=== PATIENT | male | born 1970 | race Caucasian/White ===

== ENCOUNTER 2017-02-08 10:58 | Emergency (ER) | payer BC, MEDICAID ==
[2017-02-08] MEDS ORDERED: Ketorolac 60 MG/2 ML SDV IM ONE ×2 (11:17→12:11)
[2017-02-08 11:29] VITALS: BP 134/81
--- NOTE | 2017-02-08 11:36 | EDM.PDOC ---
ED HPI GENERAL MEDICAL PROBLEM - General Chief Complaint: General Stated Complaint: KNEE Time Seen by Provider: 02/08/17 11:25 Source of Information: Reports: Patient History Limitations: Reports: No limitations - History of Present Illness INITIAL COMMENTS - FREE TEXT/NARRATIVE: History of present illness: [46 year male comes in status post trip and fall landing with full weight on the left knee. Patient indicates he was trying to not step on or source his grandson so he lost his balance and went down on his left knee with all of his weight. Patient indicated the knee started hurting after a few hours and now has some level of swelling. He indicates that he can ambulate on it it is very uncomfortable to the point of causing him to limp somewhat.] Review of systems: As per history of present illness and below otherwise all systems reviewed and negative. Past medical history: As per history of present illness and as reviewed below otherwise noncontributory. Surgical history: As per history of present illness and as reviewed below otherwise noncontributory. Social history: No reported history of drug or alcohol abuse. Family history: As per history of present illness and as reviewed below otherwise noncontributory. Physical exam: HEENT: Atraumatic, normocephalic, pupils reactive, negative for conjunctival pallor or scleral icterus, mucous membranes moist, throat clear, neck supple, nontender, trachea midline. Lungs: Clear to auscultation, breath sounds equal bilaterally, chest nontender. Heart: S1S2, regular, negative for clicks, rubs, or JVD. Abdomen: Soft, nondistended, nontender. Negative for masses or hepatosplenomegaly. Negative for costovertebral tenderness. Pelvis: Stable nontender. Genitourinary: Deferred. Rectal: Deferred. Extremities: Atraumatic, negative for cords or calf pain. Neurovascular unremarkable. Neuro: Awake, alert, oriented. Cranial nerves II through XII unremarkable. Cerebellum unremarkable. Motor and sensory unremarkable throughout. Exam nonfocal. Global assessment is benign save some tenderness to palpation and passive range of motion to left knee. Diagnostics: [X-ray with] Therapeutics: [Toradol 60 mg IM] Impression: [Knee Pain] Plan: [Knee support, nontoxic] Definitive disposition and diagnosis as appropriate pending reevaluation and review of above. Treatments SKI GUIDE: Reports: Other medication(s) Other Treatments SKI GUIDE: took one of his mothers Hydrocodone this am Left Knee Pain Score (Numeric/FACES): 10 - Related Data Allergies Allergy/AdvReac Type Severity Reaction Status Date / Time No Known Allergies Allergy Verified 01/15/16 08:23 Home Meds: Home Meds . [No Known Home Meds] 01/15/16 [History] Past Medical History HEENT History: Reports: None Cardiovascular History: Reports: None Respiratory History: Reports: None Gastrointestinal History: Reports: None Genitourinary History: Reports: None Musculoskeletal History: Reports: None Neurological History: Reports: None Psychiatric History: Reports: None Endocrine/Metabolic History: Reports: None Hematologic History: Reports: None Immunologic History: Reports: None Oncologic (Cancer) History: Reports: None Dermatologic History: Reports: None - Infectious Disease History Infectious Disease History: Reports: Chicken pox - Past Surgical History Head Surgeries/Procedures: Reports: None HEENT Surgical History: Reports: None Cardiovascular Surgical History: Reports: None Respiratory Surgical History: Reports: None GI Surgical History: Reports: Appendectomy, Hernia repair/other Other GI Surgeries/Procedures: hernia repairs x2 Endocrine Surgical History: Reports: None Neurological Surgical History: Reports: None Musculoskeletal Surgical History: Reports: Arthroscopic knee Dermatological Surgical History: Reports: None Social & Family History - Family History Cardiac: Reports: Heart failure Endocrine/Metabolic: Reports: Diabetes, type II - Tobacco Use Smoking Status *Q: Never Smoker Years of Tobacco use: 18 Packs/Tins Daily: 0.5 Second Hand Smoke Exposure: No - Recreational Drug Use Recreational Drug Use: No ED ROS GENERAL - Review of Systems Review Of Systems: See Below (History of present illness) ED EXAM, GENERAL - Physical Exam Exam: See Below (See history of present illness) Course - Vital Signs Last Recorded V/S: Last Vital Signs Temp 35.7 C 02/08/17 11:10 Pulse 88 02/08/17 11:10 Resp 18 02/08/17 11:10 BP 134/81 02/08/17 11:10 Pulse Ox 96 02/08/17 11:10 - Orders/Labs/Meds Orders: Active Orders 24 hr Category Date Time Status Knee 3V Lt [CR] Stat Exams 02/08/17 11:16 Ordered Meds: Medications Discontinued Medications Generic Name Dose Route Start Last Admin Trade Name Freq PRN Reason Stop Dose Admin Ketorolac Tromethamine 60 mg 02/08/17 11:17 02/08/17 11:26 Toradol IM 02/08/17 11:18 60 mg ONETIME ONE Administration Ketorolac Tromethamine 60 mg 02/08/17 12:11 02/08/17 12:18 Toradol IM 02/08/17 12:12 60 mg ONETIME ONE Administration Departure - Departure Time of Disposition: 12:31 Disposition: Home, Self-Care 01 Condition: good Clinical Impression: Contusion of knee Instructions: Knee Immobilizer, [id number] Additional Instructions: The following information is given to patients seen in the emergency department who are being discharged to home. This information is to outline your options for follow-up care. We provide all patients seen in our emergency department with a follow-up referral. The need for follow-up, as well as the timing and circumstances, are variable depending upon the specifics of your emergency department visit. If you don't have a primary care physician on staff, we will provide you with a referral. We always advise you to contact your personal physician following an emergency department visit to inform them of the circumstance of the visit and for follow-up with them and/or the need for any referrals to a consulting specialist. The emergency department will also refer you to a specialist when appropriate. This referral assures that you have the opportunity for follow-up care with a specialist. All of these measure are taken in an effort to provide you with optimal care, which includes your follow-up. Under all circumstances we always encourage you to contact your private physician who remains a resource for coordinating your care. When calling for follow-up care, please make the office aware that this follow-up is from your recent emergency room visit. If for any reason you are refused follow-up, please contact the [facility] Emergency Department at and asked to speak to the emergency department charge nurse. Take medication as directed Followup with PCP 1-2 days Return to ED as needed as discussed - My Orders Last 24 Hours: My Active Orders 02/08/17 11:16 Knee 3V Lt [CR] Stat - Assessment/Plan Last 24 Hours: My Active Orders 02/08/17 11:16 Knee 3V Lt [CR] Stat
--- NOTE | 2017-02-08 13:52 | CR ---
EXAM DATE: 02/08/17 PATIENT'S AGE: 46 Patient: SINGH FARRELL Facility: [place], [place] Site . Site : 1970 Study: XRay Knee Left [id number]/24/2017 12:11:39 PM Ordering Physician: Doctor Barakat Final Report: INDICATION: Constant and Sharp Knee Pain Post Fall FINDINGS: Three views of the left knee show no evidence of acute fracture or dislocation. No other bony or soft tissue abnormalities identified. Dictated by Celso Blake MD @ 02/08/2017 12:22:11 PM Dictated by: Celso Blake MD @ 02/08/2017 12:22:22 (Electronic Signature) Report Signed by Proxy and Original Signed Document filed in the Medical Record. [email or web address]
== END 2017-02-08 13:00 | disposition home or self-care (01) ==
LOC: MW.ED 10:58
DX: S80.02XA Contusion of left knee, initial encounter (principal); Z90.49 Acquired absence of other specified parts of digestive tract; W01.0XXA Fall on same level from slipping, tripping and stumbling without subsequent striking against object, initial encounter
CPT/HCPCS: 73562; 96372; 99284; J1885; 99283

== ENCOUNTER 2017-02-13 15:31 | Emergency (ER) | payer MEDICAID ==
--- NOTE | 2017-02-13 15:42 | EDM.PDOC ---
ED HPI Trauma - General Chief Complaint: Lower Extremity Injury/Pain Stated Complaint: LEFT KNEE Time Seen by Provider: 02/13/17 15:40 Source: Reports: Patient History Limitations: Reports: No limitations - History of Present Illness INITIAL COMMENTS - FREE TEXT/NARRATIVE: History of present illness: [46-year-old male presenting with left knee pain. Patient was seen by myself approximately 5 days ago in the ER for knee pain status post trip and fall directly onto the patella. X-rays indicated no acute bony abnormalities at that time. Patient does indicate on this visit, he has a distant history of being positive for gout and being on medication which he no longer takes.] Review of systems: As per history of present illness and below otherwise all systems reviewed and negative. Past medical history: As per history of present illness and as reviewed below otherwise noncontributory. Surgical history: As per history of present illness and as reviewed below otherwise noncontributory. Social history: No reported history of drug or alcohol abuse. Family history: As per history of present illness and as reviewed below otherwise noncontributory. Physical exam: HEENT: Atraumatic, normocephalic, pupils reactive, negative for conjunctival pallor or scleral icterus, mucous membranes moist, throat clear, neck supple, nontender, trachea midline. Lungs: Clear to auscultation, breath sounds equal bilaterally, chest nontender. Heart: S1S2, regular, negative for clicks, rubs, or JVD. Abdomen: Soft, nondistended, nontender. Negative for masses or hepatosplenomegaly. Negative for costovertebral tenderness. Pelvis: Stable nontender. Genitourinary: Deferred. Rectal: Deferred. Extremities: Left knee noted to have erythema and some amount of nonpitting edema, right knee without any significant findings, negative for cords or calf pain. Neurovascular unremarkable. Neuro: Awake, alert, oriented. Cranial nerves II through XII unremarkable. Cerebellum unremarkable. Motor and sensory unremarkable throughout. Exam nonfocal. Diagnostics: [ CBC, CMP, uric acid] Therapeutics: [] Impression: [Gout flare] Plan: [Medication] Definitive disposition and diagnosis as appropriate pending reevaluation and review of above. Allergies/ADRs: Allergies No Known Allergies Allergy (Verified 01/15/16 08:23) Home Medications: Ambulatory Orders Meloxicam 7.5 mg PO BID #30 tablet 02/08/17 [Confirmed 02/13/17] Colchicine 1.2 mg PO BID #40 tablet 02/13/17 Past Medical History HEENT History: Reports: None Cardiovascular History: Reports: None Respiratory History: Reports: None Gastrointestinal History: Reports: None Genitourinary History: Reports: None Musculoskeletal History: Reports: None Neurological History: Reports: None Psychiatric History: Reports: None Endocrine/Metabolic History: Reports: None Hematologic History: Reports: None Immunologic History: Reports: None Oncologic (Cancer) History: Reports: None Dermatologic History: Reports: None - Infectious Disease History Infectious Disease History: Reports: Chicken pox - Past Surgical History Head Surgeries/Procedures: Reports: None HEENT Surgical History: Reports: None Cardiovascular Surgical History: Reports: None Respiratory Surgical History: Reports: None GI Surgical History: Reports: Appendectomy, Hernia repair/other Other GI Surgeries/Procedures: hernia repairs x2 Endocrine Surgical History: Reports: None Neurological Surgical History: Reports: None Musculoskeletal Surgical History: Reports: Arthroscopic knee Dermatological Surgical History: Reports: None Social & Family History - Family History Cardiac: Reports: Heart failure Endocrine/Metabolic: Reports: Diabetes, type II - Tobacco Use Smoking Status *Q: Never Smoker Years of Tobacco use: 18 Packs/Tins Daily: 0.5 Second Hand Smoke Exposure: No - Recreational Drug Use Recreational Drug Use: No Review of Systems - Review of Systems Review Of Systems: See Below (See history of present illness) Trauma Exam - Physical Exam Exam: See Below (The history of present illness) Course - Vital Signs Last Recorded V/S: Last Vital Signs Temp 36.1 C 02/13/17 15:40 Pulse 87 02/13/17 15:40 Resp 18 02/13/17 15:40 BP 132/86 02/13/17 15:40 Pulse Ox 95 02/13/17 15:40 - Orders/Labs/Meds Labs: Laboratory Tests 02/13/17 02/13/17 Range/Units 15:45 15:45 WBC 7.31 (4.0-11.0) K/uL RBC 4.37 L (4.50-5.90) M/uL Hgb 13.2 (13.0-17.0) g/dL Hct 39.5 (38.0-50.0) % MCV 90.4 (80.0-98.0) fL MCH 30.2 (27.0-32.0) pg MCHC 33.4 (31.0-37.0) g/dL RDW Std Deviation 43.8 (28.0-62.0) fl RDW Coeff of Teresa 13 (11.0-15.0) % Plt Count 232 (150-400) K/uL MPV 10.00 (7.40-12.00) fL Neut % (Auto) 53.1 (48.0-80.0) % Lymph % (Auto) 37.1 (16.0-40.0) % [place] % (Auto) 8.1 (0.0-15.0) % Eos % (Auto) 1.6 (0.0-7.0) % Baso % (Auto) 0.1 (0.0-1.5) % Neut # (Auto) 3.9 (1.4-5.7) K/uL Lymph # (Auto) 2.7 H (0.6-2.4) K/uL [place] # (Auto) 0.6 (0.0-0.8) K/uL Eos # (Auto) 0.1 (0.0-0.7) K/uL Baso # (Auto) 0.0 (0.0-0.1) K/uL Nucleated RBC % 0.0 /100WBC Nucleated RBCs # 0 K/uL Sodium 139 (136-146) mmol/L Potassium 4.3 (3.5-5.1) mmol/L Chloride 106 (98-110) mmol/L Carbon Dioxide 24 (21-31) mmol/L BUN 15 (6.0-23.0) mg/dL Creatinine 1.2 (0.6-1.5) mg/dL Est Cr Clr Drug Dosing 82.63 mL/min Estimated GFR (MDRD) > 60.0 ml/min Glucose 122 H (60-110) mg/dL Uric Acid 7.6 H (2.1-7.4) mg/dL Calcium 9.2 (8.8-10.8) mg/dL Total Bilirubin 0.5 (0.1-1.5) mg/dL AST 23 (5-40) IU/L ALT 33 (8-54) IU/L Alkaline Phosphatase 71 (40-150) Total Protein 7.4 (6.0-8.0) g/dL Albumin 4.2 (3.5-5.0) g/dL Globulin 3.2 (2.0-3.5) g/dL Albumin/Globulin Ratio 1.3 (1.3-2.8) Departure - Departure Time of Disposition: 16:29 Disposition: Home, Self-Care 01 Condition: good Clinical Impression: Acute gouty arthritis Prescriptions: Colchicine 1.2 mg PO BID #40 tablet Referrals: PCP,None [Primary Care Provider] - Forms: ED Department Discharge Additional Instructions: The following information is given to patients seen in the emergency department who are being discharged to home. This information is to outline your options for follow-up care. We provide all patients seen in our emergency department with a follow-up referral. The need for follow-up, as well as the timing and circumstances, are variable depending upon the specifics of your emergency department visit. If you don't have a primary care physician on staff, we will provide you with a referral. We always advise you to contact your personal physician following an emergency department visit to inform them of the circumstance of the visit and for follow-up with them and/or the need for any referrals to a consulting specialist. The emergency department will also refer you to a specialist when appropriate. This referral assures that you have the opportunity for follow-up care with a specialist. All of these measure are taken in an effort to provide you with optimal care, which includes your follow-up. Under all circumstances we always encourage you to contact your private physician who remains a resource for coordinating your care. When calling for follow-up care, please make the office aware that this follow-up is from your recent emergency room visit. If for any reason you are refused follow-up, please contact the [facility] Emergency Department at and asked to speak to the emergency department charge nurse. Take medication as directed Followup with PCP 1-2 day Return to ED as needed as discussed
[2017-02-13 16:11] LABS: CHLORIDE,CL 106 mmol/L (98-110); SODIUM,NA 139 mmol/L (136-146)
[2017-02-13 16:57] VITALS: BP 120/70
== END 2017-02-13 16:50 | disposition home or self-care (01) ==
LOC: MW.ED 15:31
DX: M10.9 Gout, unspecified (principal)
CPT/HCPCS: 36415; 80053; 84550; 85025; 99283

== ENCOUNTER 2017-09-06 19:21 | Emergency (ER) | payer MEDICAID, OTHER ==
[2017-09-06] MEDS ORDERED: Lidocaine 1% 20 ML MDV INJECT ONE (19:59)
--- NOTE | 2017-09-06 20:01 | EDM.PDOC ---
ED HPI GENERAL MEDICAL PROBLEM - General Chief Complaint: Skin Complaint Stated Complaint: BOIL LT LEG Time Seen by Provider: 09/06/17 19:59 Source of Information: Reports: Patient - History of Present Illness INITIAL COMMENTS - FREE TEXT/NARRATIVE: HISTORY AND PHYSICAL: History of present illness: [Patient has a boil on his left inner thigh appears as if this developed from an ingrown hair, has a mild surrounding cellulitis approximately 2 inches in diameter, there is some pointing and the lesion is starting to drain a little exudate No fever nausea vomiting chills sweats ] Review of systems: As per history of present illness and below otherwise all systems reviewed and negative. Past medical history: As per history of present illness and as reviewed below otherwise noncontributory. Surgical history: As per history of present illness and as reviewed below otherwise noncontributory. Social history: No reported history of drug or alcohol abuse. Family history: As per history of present illness and as reviewed below otherwise noncontributory. Physical exam: HEENT: Atraumatic, normocephalic, pupils reactive, negative for conjunctival pallor or scleral icterus, mucous membranes moist, throat clear, neck supple, nontender, trachea midline. Lungs: Clear to auscultation, breath sounds equal bilaterally, chest nontender. Heart: S1S2, regular, negative for clicks, rubs, or JVD. Abdomen: Soft, nondistended, nontender. Negative for masses or hepatosplenomegaly. Negative for costovertebral tenderness. Pelvis: Stable nontender. Genitourinary: Deferred. Rectal: Deferred. Extremities: Atraumatic, negative for cords or calf pain. Neurovascular unremarkable. Neuro: Awake, alert, oriented. Cranial nerves II through XII unremarkable. Cerebellum unremarkable. Motor and sensory unremarkable throughout. Exam nonfocal. Diagnostics: []Wound culture Therapeutics: I and D Wound is flushed and packed 1 g Rocephin Bactrim double strength by mouth twice a day #20 no refill Impression: [Abscess with surrounding cellulitis left inner thigh] Definitive disposition and diagnosis as appropriate pending reevaluation and review of above. inner thigh left Pain Score (Numeric/FACES): 7 - Related Data Allergies Allergy/AdvReac Type Severity Reaction Status Date / Time No Known Allergies Allergy Verified 09/06/17 19:43 Home Meds: Home Meds Meloxicam 7.5 mg PO BID #30 tablet 02/08/17 [Rx] Allopurinol [Zyloprim] 300 mg PO DAILY 09/06/17 [History] Past Medical History - Past Health History Medical/Surgical History: Denies Medical/Surgical History HEENT History: Reports: None Cardiovascular History: Reports: None Respiratory History: Reports: None Gastrointestinal History: Reports: None Genitourinary History: Reports: None Musculoskeletal History: Reports: None Neurological History: Reports: None Psychiatric History: Reports: None Endocrine/Metabolic History: Reports: None Hematologic History: Reports: None Immunologic History: Reports: None Oncologic (Cancer) History: Reports: None Dermatologic History: Reports: None - Infectious Disease History Infectious Disease History: Reports: Chicken Pox - Past Surgical History Head Surgeries/Procedures: Reports: None HEENT Surgical History: Reports: None Cardiovascular Surgical History: Reports: None Respiratory Surgical History: Reports: None GI Surgical History: Reports: Appendectomy, Hernia Repair/Other Endocrine Surgical History: Reports: None Neurological Surgical History: Reports: None Musculoskeletal Surgical History: Reports: Arthroscopic Knee Dermatological Surgical History: Reports: None Social & Family History - Family History Family Medical History: Noncontributory Cardiac: Reports: Heart Failure Endocrine/Metabolic: Reports: Diabetes, type II - Tobacco Use Smoking Status *Q: Never Smoker Years of Tobacco use: 18 Packs/Tins Daily: 0.5 Second Hand Smoke Exposure: No - Caffeine Use Caffeine Use: Reports: None - Recreational Drug Use Recreational Drug Use: No ED ROS GENERAL - Review of Systems Review Of Systems: ROS reveals no pertinent complaints other than HPI. ED EXAM, SKIN/RASH Exam: See Below Course - Vital Signs Last Recorded V/S: Last Vital Signs Temp 97.8 F 09/06/17 19:21 Pulse 94 09/06/17 19:21 Resp 18 09/06/17 19:21 BP 118/83 09/06/17 19:21 Pulse Ox 94 L 09/06/17 19:21 - Orders/Labs/Meds Orders: Active Orders 24 hr Category Date Time Status CULTURE URINE [RM] Stat Lab 09/06/17 20:10 Stop Req CULTURE WOUND [RM] Stat Lab 09/06/17 20:38 Uncollected cefTRIAXone [Rocephin] 1,000 mg Med 09/06/17 20:39 Ordered Lidocaine 1% [Xylocaine-MPF 1%] 4 ml IM ONETIME Meds: Medications Discontinued Medications Generic Name Dose Route Start Last Admin Trade Name [place] PRN Reason Stop Dose Admin Ceftriaxone Sodium 1,000 mg/ 4 mls @ 4 mls/sec 09/06/17 20:39 Lidocaine HCl IM 09/06/17 20:40 ONETIME ONE Lidocaine HCl 20 ml 09/06/17 19:59 Xylocaine 1% INJECT 09/06/17 20:00 ONETIME ONE Departure - Departure Time of Disposition: 20:40 Disposition: Home, Self-Care 01 Condition: Good Clinical Impression: Abscess, Encounter for incision and drainage procedure - Discharge Information Referrals: Rod Koenig MD [Primary Care Provider] - Forms: ED Department Discharge Additional Instructions: Medication as prescribed Return if fever nausea vomiting chills sweats redness warmth or worsening of symptoms Follow-up with primary care in 48 hours for repacking and wound check If unable to gain appointment with primary care return to emergency room The following information is given to patients seen in the emergency department who are being discharged to home. This information is to outline your options for follow-up care. We provide all patients seen in our emergency department with a follow-up referral. The need for follow-up, as well as the timing and circumstances, are variable depending upon the specifics of your emergency department visit. If you don't have a primary care physician on staff, we will provide you with a referral. We always advise you to contact your personal physician following an emergency department visit to inform them of the circumstance of the visit and for follow-up with them and/or the need for any referrals to a consulting specialist. The emergency department will also refer you to a specialist when appropriate. This referral assures that you have the opportunity for follow-up care with a specialist. All of these measure are taken in an effort to provide you with optimal care, which includes your follow-up. Under all circumstances we always encourage you to contact your private physician who remains a resource for coordinating your care. When calling for follow-up care, please make the office aware that this follow-up is from your recent emergency room visit. If for any reason you are refused follow-up, please contact the [facility] emergency department at and asked to speak to the emergency department charge nurse. - My Orders Last 24 Hours: My Active Orders 09/06/17 20:10 CULTURE URINE [RM] Stat 09/06/17 20:38 CULTURE WOUND [RM] Stat 09/06/17 20:39 cefTRIAXone [Rocephin] 1,000 mg Lidocaine 1% [Xylocaine-MPF 1%] 4 ml IM ONETIME - Assessment/Plan Last 24 Hours: My Active Orders 09/06/17 20:10 CULTURE URINE [RM] Stat 09/06/17 20:38 CULTURE WOUND [RM] Stat 09/06/17 20:39 cefTRIAXone [Rocephin] 1,000 mg Lidocaine 1% [Xylocaine-MPF 1%] 4 ml IM ONETIME
[2017-09-06] MEDS ORDERED: cefTRIAXone 1,000 MG in Lidocaine 1% 4 ML IM ONE (20:39)
[2017-09-06 21:36] VITALS: BP 126/95
== END 2017-09-06 21:30 | disposition home or self-care (01) ==
LOC: MW.ED 19:21
DX: L02.416 Cutaneous abscess of left lower limb (principal); L03.116 Cellulitis of left lower limb
CPT/HCPCS: 10061; 87070; 99283; J0696; 99282

== ENCOUNTER 2017-11-09 02:23 | Emergency (ER) | payer OTHER ==
[2017-11-09] MEDS ORDERED: Ketorolac 60 MG/2 ML SDV IM ONE (02:42)
--- NOTE | 2017-11-09 03:44 | EDM.PDOC ---
ED HPI GENERAL MEDICAL PROBLEM - General Chief Complaint: Lower Extremity Injury/Pain Stated Complaint: GOUT IN LEFT FOOT Time Seen by Provider: 11/09/17 03:44 - History of Present Illness INITIAL COMMENTS - FREE TEXT/NARRATIVE: HISTORY AND PHYSICAL: History of present illness: Patient's a 47-year-old white male presents with a concern of acute pain swelling to the base of the first digit of his left foot he has a history of gouty arthritis denies fever chills nausea vomiting Review of systems: As per history of present illness and below otherwise all systems reviewed and negative. Past medical history: As per history of present illness and as reviewed below otherwise noncontributory. Surgical history: As per history of present illness and as reviewed below otherwise noncontributory. Social history: No reported history of drug or alcohol abuse. Family history: As per history of present illness and as reviewed below otherwise noncontributory. Physical exam: HEENT: Atraumatic, normocephalic, pupils reactive, negative for conjunctival pallor or scleral icterus, mucous membranes moist, throat clear, neck supple, nontender, trachea midline. Lungs: Clear to auscultation, breath sounds equal bilaterally, chest nontender. Heart: S1S2, regular, negative for clicks, rubs, or JVD. Abdomen: Soft, nondistended, nontender. Negative for masses or hepatosplenomegaly. Negative for costovertebral tenderness. Pelvis: Stable nontender. Genitourinary: Deferred. Rectal: Deferred. Extremities: Patient's pain swelling and erythema in the region of the distal first metatarsal left foot neurovascular exams unremarkable Neuro: Awake, alert, oriented. Cranial nerves II through XII unremarkable. Cerebellum unremarkable. Motor and sensory unremarkable throughout. Exam nonfocal. Diagnostics: X-ray left foot uric acid Therapeutics: Toradol 60 mg IM Impression: #1 acute gouty arthritis Definitive disposition and diagnosis as appropriate pending reevaluation and review of above. Left Feet Pain Score (Numeric/FACES): 10 - Related Data Allergies Allergy/AdvReac Type Severity Reaction Status Date / Time No Known Allergies Allergy Verified 11/09/17 02:32 Home Meds: Home Meds Allopurinol [Zyloprim] 300 mg PO DAILY 09/06/17 [History] Meloxicam 7.5 mg PO DAILY PRN 11/09/17 [History] Past Medical History - Past Health History Medical/Surgical History: Denies Medical/Surgical History HEENT History: Reports: None Cardiovascular History: Reports: None Respiratory History: Reports: None Gastrointestinal History: Reports: None Genitourinary History: Reports: None Musculoskeletal History: Reports: Gout Neurological History: Reports: None Psychiatric History: Reports: None Endocrine/Metabolic History: Reports: None Hematologic History: Reports: None Immunologic History: Reports: None Oncologic (Cancer) History: Reports: None Dermatologic History: Reports: None - Infectious Disease History Infectious Disease History: Reports: Chicken Pox - Past Surgical History Head Surgeries/Procedures: Reports: None HEENT Surgical History: Reports: None Cardiovascular Surgical History: Reports: None Respiratory Surgical History: Reports: None GI Surgical History: Reports: Appendectomy, Hernia Repair/Other Male Surgical History: Reports: None Endocrine Surgical History: Reports: None Neurological Surgical History: Reports: None Musculoskeletal Surgical History: Reports: Arthroscopic Knee Dermatological Surgical History: Reports: None Social & Family History - Family History Family Medical History: Noncontributory Cardiac: Reports: Heart Failure Endocrine/Metabolic: Reports: Diabetes, type II - Tobacco Use Smoking Status *Q: Never Smoker Years of Tobacco use: 18 Packs/Tins Daily: 0.5 Second Hand Smoke Exposure: No - Caffeine Use Caffeine Use: Reports: None - Recreational Drug Use Recreational Drug Use: No Review of Systems - Review of Systems Review Of Systems: ROS reveals no pertinent complaints other than HPI. ED EXAM, GENERAL - Physical Exam Exam: See Below (See dictation) Course - Vital Signs Last Recorded V/S: Last Vital Signs Temp 35.5 C 11/09/17 02:25 Pulse 79 11/09/17 02:25 Resp 17 11/09/17 02:25 BP 135/100 H 11/09/17 02:25 Pulse Ox 99 11/09/17 02:25 - Orders/Labs/Meds Orders: Active Orders 24 hr Category Date Time Status Foot Comp Min 3V Lt [CR] Stat Exams 11/09/17 02:42 Taken Labs: Laboratory Tests 11/09/17 Range/Units 02:48 Uric Acid 6.2 (2.1-7.4) mg/dL Meds: Medications Discontinued Medications Generic Name Dose Route Start Last Admin Trade Name Freq PRN Reason Stop Dose Admin Ketorolac Tromethamine 60 mg 11/09/17 02:42 11/09/17 02:46 Toradol IM 11/09/17 02:43 60 mg ONETIME ONE Administration Departure - Departure Time of Disposition: 03:43 Disposition: Home, Self-Care 01 Condition: Good Clinical Impression: Gout attack - Discharge Information Referrals: Luis A Dimas MD [Primary Care Provider] - Additional Instructions: The following information is given to patients seen in the emergency department who are being discharged to home. This information is to outline your options for follow-up care. We provide all patients seen in our emergency department with a follow-up referral. The need for follow-up, as well as the timing and circumstances, are variable depending upon the specifics of your emergency department visit. If you don't have a primary care physician on staff, we will provide you with a referral. We always advise you to contact your personal physician following an emergency department visit to inform them of the circumstance of the visit and for follow-up with them and/or the need for any referrals to a consulting specialist. The emergency department will also refer you to a specialist when appropriate. This referral assures that you have the opportunity for followup care with a specialist. All of these measure are taken in an effort to provide you with optimal care, which includes your followup. Under all circumstances we always encourage you to contact your private physician who remains a resource for coordinating your care. When calling for followup care, please make the office aware that this follow-up is from your recent emergency room visit. If for any reason you are refused follow-up, please contact the [facility] emergency department at and asked to speak to the emergency department charge nurse. [facility] [address], [address] [place] [address] Indomethacin hydrocodone as prescribed follow-up primary medical doctor as needed as discussed and return as needed as discussed orthopedic clinic for follow-up call to schedule routine appointment - My Orders Last 24 Hours: My Active Orders 11/09/17 02:42 Foot Comp Min 3V Lt [CR] Stat - Assessment/Plan Last 24 Hours: My Active Orders 11/09/17 02:42 Foot Comp Min 3V Lt [CR] Stat
[2017-11-09 05:46] VITALS: BP 127/88
--- NOTE | 2017-11-09 14:51 | CR ---
EXAM DATE: 11/09/17 PATIENT'S AGE: 47 Patient: SINGH FARRELL Facility: [place], [place] Site . Site : 1970 Study: XRay Extremity Left FOOT [id number]/[id number] 3:07:35 AM Ordering Physician: Doctor Barakat Final Report: INDICATION: Foot pain with no known injury. Patient states history of gout TECHNIQUE: Foot radiograph 3 views left COMPARISON: None FINDINGS: Bones: No acute fractures or aggressive bone lesions are identified. Joints: Mild osteoarthritis of the ankle joint is noted. No significant ankle effusion is seen. No radiographic evidence of inflammatory arthritis seen. Soft tissue: Unremarkable. No radiopaque foreign bodies are seen. IMPRESSION: 1. No radiographic evidence of inflammatory arthritis seen. Dictated by Gualberto Waters MD @ 11/09/2017 3:11:54 AM Dictated by: Gualberto Waters MD @ 11/09/2017 03:12:12 (Electronic Signature) Report Signed by Proxy. MICAH
== END 2017-11-09 04:07 | disposition home or self-care (01) ==
LOC: MW.ED 02:23
DX: M10.9 Gout, unspecified (principal); Z79.899 Other long term (current) drug therapy
CPT/HCPCS: 36415; 73630; 84550; 96372; 99283; J1885

== ENCOUNTER 2018-12-08 12:01 | Emergency (ER) | payer BC ==
[2018-12-08 12:13] VITALS: BP 152/86
[2018-12-08] MEDS ORDERED: Ketorolac 60 MG/2 ML SDV IM ONE (12:51)
--- NOTE | 2018-12-08 12:51 | EDM.PDOC ---
ED HPI GENERAL MEDICAL PROBLEM - General Chief Complaint: Lower Extremity Injury/Pain Stated Complaint: pain in knee Time Seen by Provider: 12/08/18 12:51 Source of Information: Reports: Patient History Limitations: Reports: No Limitations - History of Present Illness INITIAL COMMENTS - FREE TEXT/NARRATIVE: HISTORY AND PHYSICAL: History of present illness: Patient is a 48-year-old male here with complaint of left knee pain. He states it started around 1:00am today. He has history of gout in the left toe and left ankle and states he has been out of his allopurinol for a couple of weeks. He has been able to walk on it and denies any fevers or chills. No injury or trauma to the knee. Review of systems: As per history of present illness and below otherwise all systems reviewed and negative. Past medical history: As per history of present illness and as reviewed below otherwise noncontributory. Surgical history: As per history of present illness and as reviewed below otherwise noncontributory. Social history: No reported history of drug or alcohol abuse. Family history: As per history of present illness and as reviewed below otherwise noncontributory. Physical exam: General: Patient sitting comfortably in no acute distress and nontoxic appearing HEENT: Atraumatic, normocephalic, pupils reactive, negative for conjunctival pallor or scleral icterus, mucous membranes moist, throat clear, neck supple, nontender, trachea midline. No meningeal signs. Lungs: Clear to auscultation, breath sounds equal bilaterally, chest nontender. Heart: S1S2, regular, negative for clicks, rubs, or overt murmur. Abdomen: Soft, nondistended, nontender. Negative for masses or hepatosplenomegaly. Negative for costovertebral tenderness. Pelvis: Stable nontender. Genitourinary: Deferred. Rectal: Deferred. Extremities: Right anterior knee is slightly erythematous and warm and tender to palpation. Surrounding skin is intact. No pain with range of motion patient is able to walk on it with minimal discomfort Atraumatic, negative for cords or calf pain. Neurovascular unremarkable. Neuro: Awake, alert, oriented. Cranial nerves II through XII unremarkable. Cerebellum unremarkable. Motor and sensory unremarkable throughout. Exam nonfocal. Notes: Diagnostics: None Therapeutics: Toradol 60mg IM Prescriptions: Medrol dosepak Impression: Acute gout Plan: 1. Take medication as instructed. Please call your primary care provider to get a prescription for allopurinol to start once flare has resolved. 2. Follow up with primary care provider 3. Return to ED as needed as discussed Definitive disposition and diagnosis as appropriate pending reevaluation and review of above. Left Knee Pain Score (Numeric/FACES): 8 - Related Data Allergies Allergy/AdvReac Type Severity Reaction Status Date / Time No Known Allergies Allergy Verified 12/08/18 12:12 Home Meds: Home Meds Allopurinol [Zyloprim] 300 mg PO DAILY 09/06/17 [History] methylPREDNISolone [Medrol] 4 mg PO ASDIRECTED #1 tab.ds.pk 12/08/18 [Rx] Past Medical History - Past Health History Medical/Surgical History: Denies Medical/Surgical History HEENT History: Reports: Other (See Below) Other HEENT History: wears glasses Cardiovascular History: Reports: None Respiratory History: Reports: None Gastrointestinal History: Reports: GERD Genitourinary History: Reports: None Musculoskeletal History: Reports: Gout, Osteoarthritis Neurological History: Reports: None Psychiatric History: Reports: None Endocrine/Metabolic History: Reports: Obesity/BMI 30+ Hematologic History: Reports: None Immunologic History: Reports: None Oncologic (Cancer) History: Reports: None Dermatologic History: Reports: None - Infectious Disease History Infectious Disease History: Reports: Chicken Pox - Past Surgical History Head Surgeries/Procedures: Reports: None HEENT Surgical History: Reports: None Cardiovascular Surgical History: Reports: None Respiratory Surgical History: Reports: None GI Surgical History: Reports: Appendectomy, Hernia Repair/Other Other GI Surgeries/Procedures: hernia repairs x2 Male Surgical History: Reports: None Endocrine Surgical History: Reports: None Neurological Surgical History: Reports: None Musculoskeletal Surgical History: Reports: Arthroscopic Knee, Other (See Below) Other Musculoskeletal Surgeries/Procedures:: knee replacement Dermatological Surgical History: Reports: None Social & Family History - Family History Family Medical History: Noncontributory Cardiac: Reports: Heart Failure Endocrine/Metabolic: Reports: Diabetes, type II - Tobacco Use Smoking Status *Q: Never Smoker - Caffeine Use Caffeine Use: Reports: None - Recreational Drug Use Recreational Drug Use: No Review of Systems - Review of Systems Review Of Systems: ROS reveals no pertinent complaints other than HPI. ED EXAM, GENERAL - Physical Exam Exam: See Below (see dictation) Course - Vital Signs Last Recorded V/S: Last Vital Signs Temp 96.6 F 12/08/18 12:08 Pulse 75 12/08/18 12:08 Resp 18 12/08/18 12:08 BP 152/86 H 12/08/18 12:08 Pulse Ox 97 12/08/18 12:08 - Orders/Labs/Meds Meds: Medications Discontinued Medications Generic Name Dose Route Start Last Admin Trade Name Freq PRN Reason Stop Dose Admin Ketorolac Tromethamine 60 mg 12/08/18 12:51 Toradol IM 12/08/18 12:52 ONETIME ONE Departure - Departure Time of Disposition: 13:09 Disposition: Home, Self-Care 01 Condition: Good Clinical Impression: Acute gout - Discharge Information Prescriptions: methylPREDNISolone [Medrol] 4 mg PO ASDIRECTED #1 tab.ds.pk Referrals: PCP,None [Primary Care Provider] - Forms: ED Department Discharge Additional Instructions: The following information is given to patients seen in the emergency department who are being discharged to home. This information is to outline your options for follow-up care. We provide all patients seen in our emergency department with a follow-up referral. The need for follow-up, as well as the timing and circumstances, are variable depending upon the specifics of your emergency department visit. If you don't have a primary care physician on staff, we will provide you with a referral. We always advise you to contact your personal physician following an emergency department visit to inform them of the circumstance of the visit and for follow-up with them and/or the need for any referrals to a consulting specialist. The emergency department will also refer you to a specialist when appropriate. This referral assures that you have the opportunity for follow-up care with a specialist. All of these measure are taken in an effort to provide you with optimal care, which includes your follow-up. Under all circumstances we always encourage you to contact your private physician who remains a resource for coordinating your care. When calling for follow-up care, please make the office aware that this follow-up is from your recent emergency room visit. If for any reason you are refused follow-up, please contact the [facility] Emergency Department at and asked to speak to the emergency department charge nurse. [facility] [address] [place], [place] [id number] 1. Take medication as instructed. Please call your primary care provider to get a prescription for allopurinol to start once flare has resolved. 2. Follow up with primary care provider 3. Return to ED as needed as discussed
== END 2018-12-08 13:48 | disposition home or self-care (01) ==
LOC: MW.ED 12:01
DX: M10.9 Gout, unspecified (principal); Z79.899 Other long term (current) drug therapy
CPT/HCPCS: 96372; 99283; J1885

== ENCOUNTER 2021-04-16 10:49 | Inpatient (IN) | payer MEDICAID ==
[~2021-04-16 10:49] MED LIST: Albuterol 0.083% 2.5 MG/3 ML Neb Soln NEB PRN; Famotidine 20 MG/2 ML SDV IVPUSH SCH; HYDROmorphone 2 MG/ML Syringe IVPUSH PRN; Lactated Ringers 1,000 ML IV SCH; Metoclopramide 10 MG/2 ML SDV IVPUSH PRN; Morphine 2 MG/ML SYRINGE IVPUSH PRN; Naloxone 0.4 MG/ML Syringe IVPUSH PRN; Ondansetron 4 MG/2 ML SDV IVPUSH PRN; Ropivacaine 49.25 ML, Ketorolac 30 MG, EPINEPHrine 0.5 MG, cloNIDine 80 MCG in Sodium C... INJECT SCH; Scopolamine 1.5 MG Transdermal Patch TRDERM SCH; Tranexamic Acid 1,000 MG in Sodium Chloride 0.9% 100 ML IV ONE; ceFAZolin 1 GM Vial IV ONE; fentaNYL 100 MCG/2 ML SDV IVPUSH PRN
[2021-04-16] MEDS ORDERED: Famotidine 20 MG/2 ML SDV ONE (11:01)
[2021-04-16] MEDS ORDERED: Scopolamine 1.5 MG Transdermal Patch ONE (11:18)
[2021-04-16] MEDS ORDERED: Bupivacaine 0.5% 30 ML SDV ONE (11:25)
[2021-04-16] MEDS ORDERED: fentaNYL 100 MCG/2 ML SDV ONE ×2 (11:46→13:37)
[2021-04-16] MEDS ORDERED: propofoL 100 ML ONE (13:37)
[2021-04-16] MEDS ORDERED: Lidocaine 2% 5 ML SDV ONE ×2 (13:39→14:33)
[2021-04-16] MEDS ORDERED: Metoclopramide 10 MG/2 ML SDV ONE (13:51)
[2021-04-16] MEDS ORDERED: Esmolol 100 MG/10 ML SDV ONE (14:21)
[2021-04-16] MEDS ORDERED: Rocuronium Bromide 50 MG/5 ML Syringe ONE ×2 (14:21)
[2021-04-16] MEDS ORDERED: Sugammadex Sodium 200 MG/2 ML VIAL ONE (14:21)
[2021-04-16] MEDS ORDERED: Metoprolol Tartrate 5 MG/5 ML SDV ONE (14:21)
[2021-04-16] MEDS ORDERED: Ondansetron 4 MG/2 ML SDV ONE ×2 (14:21)
[2021-04-16] MEDS ORDERED: ceFAZolin 1 GM Vial ONE ×3 (14:24)
[2021-04-16] MEDS ORDERED: Lidocaine 2% 100 MG/5 ML Syringe ONE (14:34)
--- NOTE | 2021-04-16 14:37 | PCM.PREANE ---
Preanesthetic Assessment - Anesthesia/Transfusion/Family Hx Anesthesia History: Prior Anesthesia Without Reaction Transfusion History: No Prior Transfusion(s) - Review of Systems General: No Symptoms Pulmonary: No Symptoms Cardiovascular: No Symptoms Gastrointestinal: No Symptoms Neurological: Difficulty Walking (secondary to hip pain) Other: Reports: None - Physical Assessment NPO Status Date: 04/16/21 NPO Status Time: 00:00 Vital Signs: Last Vital Signs Temp 95.5 F L 04/16/21 11:20 Pulse 90 04/16/21 11:20 Resp 16 04/16/21 11:20 BP 136/84 04/16/21 11:20 Pulse Ox 94 L 04/16/21 11:20 Height: 6 ft Weight: 280 lb ASA Class: 3 Mental Status: Alert & Oriented x3 Airway Class: Mallampati = 4 Dentition: Reports: Normal Dentition Thyro-Mental Finger Breadths: 4 Mouth Opening Finger Breadths: 3 ROM/Head Extension: Full Lungs: Clear to Auscultation, Normal Respiratory Effort Cardiovascular: Regular Rate, Regular Rhythm - Lab Values: Laboratory Last Values Blood Type A POSITIVE 04/16/21 11:20 Antibody Screen NEGATIVE 04/16/21 11:20 - Allergies Allergies/Adverse Reactions: Allergies Allergy/AdvReac Type Severity Reaction Status Date / Time No Known Allergies Allergy Verified 04/16/21 11:47 - Blood Blood Available: Yes - Anesthesia Plan Pre-Op Medication Ordered: Anxiolytic - Acknowledgements Anesthesia Type Planned: General Anesthesia Pt an Appropriate Candidate for the Planned Anesthesia: Yes Alternatives and Risks of Anesthesia Discussed w Pt/Guardian: Yes Pt/Guardian Understands and Agrees with Anesthesia Plan: Yes PreAnesthesia Questionnaire - Past Health History Medical/Surgical History: Denies Medical/Surgical History HEENT History: Reports: Other (See Below) Other HEENT History: wears glasses Cardiovascular History: Reports: None Respiratory History: Reports: None Gastrointestinal History: Reports: GERD Other Gastrointestinal History: occasional heartburn- takes Tums Genitourinary History: Reports: None Musculoskeletal History: Reports: Gout, Osteoarthritis Other Musculoskeletal History: hx of degenerative disc disease Neurological History: Reports: None Psychiatric History: Reports: None Endocrine/Metabolic History: Reports: Obesity/BMI 30+ Hematologic History: Reports: None Immunologic History: Reports: None Oncologic (Cancer) History: Reports: None Dermatologic History: Reports: None - Infectious Disease History Infectious Disease History: Reports: Chicken Pox - Past Surgical History Head Surgeries/Procedures: Reports: None HEENT Surgical History: Reports: None Cardiovascular Surgical History: Reports: None Respiratory Surgical History: Reports: None GI Surgical History: Reports: Appendectomy, Hernia Repair/Other Other GI Surgeries/Procedures: hernia repairs x2 Male Surgical History: Reports: None Endocrine Surgical History: Reports: None Neurological Surgical History: Reports: None Musculoskeletal Surgical History: Reports: Arthroscopic Knee, Other (See Below) Other Musculoskeletal Surgeries/Procedures:: knee replacement Oncologic Surgical History: Reports: None Dermatological Surgical History: Reports: None - SUBSTANCE USE Tobacco Use Status *Q: Current Every Day Tobacco User Tobacco Use Within Last Twelve Months: Snuff/Dip Recreational Drug Use History: No - HOME MEDS Home Medications: Home Meds Ibuprofen 800 mg PO ASDIRECTED PRN 04/11/21 [History] Acetaminophen [Tylenol Extra Strength] 1,500 mg PO DAILY PRN 04/16/21 [History] - CURRENT (IN HOUSE) MEDS Current Meds: Current Medications Albuterol (Albuterol 0.083% 2.5 Mg/3 Ml Neb Soln) 2.5 mg NEB ONETIME PRN PRN Reason: Wheezing Droperidol (Droperidol 5 Mg/2 Ml Sdv) 0.625 mg IVPUSH ONETIME PRN PRN Reason: Nausea/Vomiting Famotidine (Famotidine 20 Mg/2 Ml Sdv) 40 mg IVPUSH ONARRIVE [facility] Last Admin: 04/16/21 11:35 Dose: 40 mg Documented by: Fentanyl (Fentanyl 100 Mcg/2 Ml Sdv) 50 mcg IVPUSH Q5M PRN PRN Reason: Pain (mild 1-3) Hydromorphone HCl (Hydromorphone 2 Mg/Ml Syringe) 1 mg IVPUSH Q10M PRN PRN Reason: Pain (moderate 4-6) Ropivacaine 49.25 ml/Ketorolac Tromethamine 30 mg/Epinephrine HCl 0.5 mg/Clonidine HCl 80 mcg/ Sodium Chloride 75 mls @ 50 mls/sec INJECT ASDIRECTED [facility] Lactated Ringer's (Ringers, Lactated) 1,000 mls @ 100 mls/hr IV ASDIRECTED [facility] Last Admin: 04/16/21 11:35 Dose: 100 mls/hr Documented by: Metoclopramide HCl (Metoclopramide 10 Mg/2 Ml Sdv) 10 mg IVPUSH ONETIME PRN PRN Reason: Nausea/Vomiting Morphine Sulfate (Morphine 2 Mg/Ml Syringe) 2 mg IVPUSH Q10M PRN PRN Reason: Pain (severe 7-10) Naloxone HCl (Naloxone 0.4 Mg/Ml Syringe) 0.1 mg IVPUSH ASDIRECTED PRN PRN Reason: Respiratory Depression Ondansetron HCl (Ondansetron 4 Mg/2 Ml Sdv) 4 mg IVPUSH ONETIME PRN PRN Reason: Nausea/Vomiting Scopolamine (Scopolamine 1.5 Mg Transdermal Patch) 1.5 mg TRDER ONARRIVE [facility] Last Admin: 04/16/21 11:44 Dose: 1.5 mg Documented by: Discontinued Medications Bupivacaine HCl (Bupivacaine 0.5% 30 Ml Sdv) Confirm Administered Dose 60 ml .ROUTE .STK-MED ONE Stop: 04/16/21 11:26 Cefazolin Sodium (Cefazolin 1 Gm Vial) 3 gm IV ONCALL ONE Stop: 04/16/21 06:01 Cefazolin Sodium (Cefazolin 1 Gm Vial) Confirm Administered Dose 1 gm .ROUTE .STK-MED ONE Stop: 04/16/21 14:25 Cefazolin Sodium (Cefazolin 1 Gm Vial) Confirm Administered Dose 1 gm .ROUTE .STK-MED ONE Stop: 04/16/21 14:25 Cefazolin Sodium (Cefazolin 1 Gm Vial) Confirm Administered Dose 1 gm .ROUTE .STK-MED ONE Stop: 04/16/21 14:25 Esmolol HCl (Esmolol 100 Mg/10 Ml Sdv) Confirm Administered Dose 100 mg .ROUTE .STK-MED ONE Stop: 04/16/21 14:22 Famotidine (Famotidine 20 Mg/2 Ml Sdv) Confirm Administered Dose 40 mg .ROUTE .STK-MED ONE Stop: 04/16/21 11:02 Fentanyl (Fentanyl 100 Mcg/2 Ml Sdv) Confirm Administered Dose 100 mcg .ROUTE .STK-MED ONE Stop: 04/16/21 11:47 Fentanyl (Fentanyl 100 Mcg/2 Ml Sdv) Confirm Administered Dose 100 mcg .ROUTE .STK-MED ONE Stop: 04/16/21 13:38 Tranexamic Acid 1,000 mg/ (Sodium Chloride) 110 mls @ 600 mls/hr IV ASDIRECTED ONE Stop: 04/16/21 08:10 Propofol (Diprivan 100 Ml) Confirm Administered Dose 100 mls @ as directed .ROUTE .[facility]-MED ONE Stop: 04/16/21 13:38 Lidocaine (Lidocaine 2% 5 Ml Sdv) Confirm Administered Dose 5 ml .ROUTE .[facility]-MED ONE Stop: 04/16/21 13:40 Metoclopramide HCl (Metoclopramide 10 Mg/2 Ml Sdv) Confirm Administered Dose 10 mg .ROUTE .[facility] ONE Stop: 04/16/21 13:52 Metoprolol Tartrate (Metoprolol Tartrate 5 Mg/5 Ml Sdv) Confirm Administered Dose 5 mg .ROUTE .[facility] ONE Stop: 04/16/21 14:22 Ondansetron HCl (Ondansetron 4 Mg/2 Ml Sdv) Confirm Administered Dose 4 mg .ROUTE .[facility] ONE Stop: 04/16/21 14:22 Ondansetron HCl (Ondansetron 4 Mg/2 Ml Sdv) Confirm Administered Dose 4 mg .ROUTE .[facility]-MED ONE Stop: 04/16/21 14:22 Rocuronium [place] (Rocuronium [place] 50 Mg/5 Ml Syringe) Confirm Administered Dose 50 mg .ROUTE .[facility]-MED ONE Stop: 04/16/21 14:22 Rocuronium [place] (Rocuronium [place] 50 Mg/5 Ml Syringe) Confirm Administered Dose 50 mg .ROUTE .ST-MED ONE Stop: 04/16/21 14:22 Scopolamine (Scopolamine 1.5 Mg Transdermal Patch) Confirm Administered [facility].5 [facility] Stop: 04/16/21 11:19 Sugammadex Sodium (Sugammadex Sodium 200 Mg/2 Ml Vial) Confirm Administered Dose 200 mg .ROUTE .ST-MED ONE Stop: 04/16/21 14:22 Tranexamic Acid (Tranexamic Acid 1,000 Mg/10 Ml Amp) Confirm Administered Dose 1,000 mg .ROUTE .ST-MED ONE Stop: 04/16/21 13:49
[2021-04-16] MEDS ORDERED: diphenhydrAMINE 25 MG Cap PO PRN (17:14)
[2021-04-16] MEDS ORDERED: Acetaminophen 325 MG Tab PO PRN (17:14)
[2021-04-16] MEDS ORDERED: Sodium Chloride 0.9% 2.5 ML Syringe FLUSH PRN (17:14)
[2021-04-16] MEDS ORDERED: Ondansetron 4 MG/2 ML SDV IVPUSH PRN (17:14)
[2021-04-16] MEDS ORDERED: Docusate Sodium 100 MG Cap PO PRN (17:14)
[2021-04-16] MEDS ORDERED: oxyCODONE 5 MG Tab PO PRN (17:14)
[2021-04-16] MEDS ORDERED: Bisacodyl 10 MG Supp RECTAL PRN (17:14)
[2021-04-16] MEDS ORDERED: Aluminum Hydroxide/Magnesium Hydroxide/Simethicone Susp 30 ML Cup PO PRN (17:14)
[2021-04-16] MEDS ORDERED: Sodium Chloride 0.9% 10 ML Syringe FLUSH PRN (17:14)
[2021-04-16] MEDS ORDERED: Morphine 2 MG/ML SYRINGE IVPUSH PRN (17:14)
--- NOTE | 2021-04-16 17:24 | PCM.POSTAN ---
POST ANESTHESIA ASSESSMENT - MENTAL STATUS Mental Status: Somnolent - VITAL SIGNS Vital Signs: Last Vital Signs Temp 95.5 F L 04/16/21 11:20 Pulse 90 04/16/21 11:20 Resp 16 04/16/21 11:20 BP 136/84 04/16/21 11:20 Pulse Ox 94 L 04/16/21 11:20 - RESPIRATORY Respiratory Status: Respiratory Rate WNL, Airway Patent, O2 Saturation Stable - CARDIOVASCULAR CV Status: Pulse Rate WNL, Blood Pressure Stable - GASTROINTESTINAL GI Status: No Symptoms - PAIN Pain Score: 1 - POST OP HYDRATION Hydration Status: Adequate & Stable
--- NOTE | 2021-04-16 17:24 | PCM.OPNOTE ---
- General Post-Op/Procedure Note Date of Surgery/Procedure: 04/16/21 Operative Procedure(s): Left total hip arthroplasty using Huynh & Nephew hip system Findings: Left hip severe grade 4 arthritis with full-thickness cartilage loss of both the femoral head and acetabulum, large marginal osteophytes including large anterior osteophyte. Pre Op Diagnosis: Left hip grade 4 osteoarthritis Post-Op Diagnosis: Left hip grade 4 osteoarthritis Anesthesia Technique: General ET Tube, Regional Block Primary Surgeon: Ramy Leger Trimmer And Reinforcer: Romi Diallo Trimmer And Reinforcer Was Necessary: Patient positioning and retraction during surgery. Pathology: Femoral head to pathology EBL in mLs: 300 Complications: None Free Text/Narrative:: Patient is a 50-year-old male with severe left hip arthritis. We discussed the risks and benefits of left total hip replacement. All questions were answered and patient wished to proceed with surgery. Patient consented to surgery. Patient was medically cleared for surgery. Patient was taken to the operating room. After adequate general anesthesia he was placed in a right lateral decubitus position left side up for surgery. Pegboard was used for positioning. The left buttock hip thigh and leg were prep ped and draped in usual sterile manner. Curvilinear incision was made centered over the greater trochanter. Skin was incised with a scalpel. Subcutaneous tissue was incised with electrocautery. The iliotibial band was split between fibers and extended into the gluteus daysi. Retractors were placed. The anterior third of the abductors were taken down as a continuous sleeve in line with the vastus lateralis and retracted anteriorly. AT capsulotomy was performed. It was not possible to dislocate the femoral head so the femoral neck was removed with superior and inferior femoral neck cuts and the neck removed. Then the femoral head was able to be removed with a corkscrew. Retractors were placed around the acetabulum. There were large osteophytes present. Soft tissues were excised as well as the calcified labrum. Sequentially reamed from 54-58 with good bleeding bone. A 3-hole 58 mm acetabular shell was then impacted into place with approximately 45 degrees of abduction and 20 degrees of anteversion. 2 screws were then placed through the cup and then a central hole cover and a third screw hole cover were inserted. Before inserting the liner the large anterior superior anterior and anterior inferior osteophytes were removed with osteotome to prevent dislocation in the future. The liner with cross-linked polyethylene and a 20 degree overhang were then inserted in appropriate position with overhang at approximately 1:00. A Ray-Guero was placed in the liner to protect the liner while the femur was prepared. The femur was prepared starting with a box osteotome. Canal finder and then reamers up to size 15 were sequentially used. Then we broached up to size 14 with good fit and fill. Size 15 was too large. Trial reductions showed that there was good stability and range of motion with a high offset neck and a +8 mm neck length. Femoral trial components were removed. A size 14 high offset ingrowth Synergy femoral stem was inserted to the appropriate depth. A 36 mm diameter +8 mm Oxinium femoral head was applied and seated with an impactor. Reduction was performed and the hip was again noted to be stable with full extension and external rotation to 90 degrees and flexion to 90 degrees. Wounds were irrigated. Capsule was repaired with interrupted #1 Vicryl sutures. The abductors were repaired back to the greater trochanter with #5 Ethibond figu re-of-eight sutures through bone tunnels. The iliotibial band was repaired with interrupted running #1 Vicryl suture. Subcutaneous tissue was approximated with first #1 interrupted Vicryl suture and then subcutaneous 2-0 Vicryl interrupted sutures. Running Monocryl subcuticular suture was used for final skin closure. A sterile dressing was applied and the patient was accompanied the cover room in stable condition. Pain medication Toradol/ibuprofen, acetaminophen, oxycodone Venous thromboembolism prophylaxis: Aspirin enteric-coated 325 mg p.o. daily for 90 days Prophylactic antibiotics: Ancef x2 doses Restrictions: Patient is weightbearing as tolerated on his left lower extremity with anterolateral hip dislocation precautions. He will receive physical therapy in the hospital prior to discharge and outpatient physical therapy will depend on how he does while he is seen here in the hospital.
[2021-04-16] MEDS: Ketorolac 30 MG/ML SDV IVPUSH SCH ×2 (18:46→23:21)
[2021-04-16] MEDS: traMADol 50 MG Tab PO PRN (19:56)
[2021-04-16] MEDS: ceFAZolin 2 GM in Premix Bag 1 BAG IV SCH (23:25)
[2021-04-17] MEDS: ceFAZolin 2 GM in Premix Bag 1 BAG IV SCH (06:44)
[2021-04-17] MEDS: traMADol 50 MG Tab PO PRN (06:46)
--- NOTE | 2021-04-17 08:35 | PCM48HPAN ---
Post Anesthesia Note - EVALUATION WITHIN 48HRS OF ANESTHETIC Vital Signs in Normal Range: Yes Patient Participated in Evaluation: Yes Respiratory Function Stable: Yes Airway Patent: Yes Cardiovascular Function Stable: Yes Hydration Status Stable: Yes Pain Control Satisfactory: Yes Nausea and Vomiting Control Satisfactory: Yes Mental Status Recovered: Yes Vital Signs: Last Vital Signs Temp 96.1 F L 04/17/21 08:00 Pulse 100 04/17/21 08:00 Resp 22 H 04/17/21 08:00 BP 144/101 H 04/17/21 08:00 Pulse Ox 95 04/17/21 08:00
[2021-04-17] MEDS ORDERED: Polyethylene Glycol 3350 Powder 17 GM Packet PO SCH (09:00)
[2021-04-17] MEDS ORDERED: Famotidine 20 MG Tab PO SCH (09:00)
[2021-04-17] MEDS ORDERED: Aspirin 325 MG Tab.EC PO SCH (09:00)
[2021-04-17] MEDS ORDERED: Ibuprofen 800 MG Tab PO SCH (11:00)
[2021-04-17 12:18] VITALS: BP 132/76; PULSE 96
--- NOTE | 2021-04-17 14:17 | PCM.SN.2 ---
- Free Text/Narrative Note: Orthopedic surgery note Postoperative day #1 from left total hip replacement Patient is doing well Pain is well-controlled Patient has been seen by physical therapy and cleared for discharge Plan: Change dressing prior to discharge Outpatient physical therapy as already been ordered and a prescription for a walker has been written Pain management with ibuprofen, Tylenol, and oxycodone Aspirin for venous thromboembolus prophylaxis for 90 days Weightbearing as tolerated on left lower extremity with walker Patient is cleared for discharge to home
--- NOTE | 2021-04-17 15:32 | PCM.DCSUM1 ---
Discharge Summary - Hospital Course Brief History: Patient is a 50-year-old male with severe grade 4 left hip osteoarthritis. He has failed optimal medical management and so we discussed the risks and benefits of left total hip replacement surgery. Patient elected to proceed with surgery and was medically clear for surgery. Diagnosis: Stroke: No - Discharge Data Discharge Date: 04/17/21 Discharge Disposition: Home, Self-Care 01 Condition: Good - Referral to Home Health Primary Care Physician: Rod Koenig MD - Patient Summary/Data Operative Procedure(s) Performed: Left total hip arthroplasty using Huynh & Nephew hip system Complications: None Consults: Consultations 04/16/21 17:15 PT Evaluation and Treatment [CONS] Routine Hospital Course: Patient was admitted to the hospital yesterday and underwent a left total hip replacement. Patient has had an uneventful hospital course. Patient has had good pain management with regional blocks and pain medications. Patient is cleared by physical therapy for discharge to home today. - Patient Instructions Diet: Usual Diet as Tolerated Activity: Apply Ice (use POLARCARE ice pad to your hip to decrease swelling and minimize pain), No Strenuous Activities Activity, Other: weight bearing as tolerates to left leg. Use walker when ambulating Driving, Other: no driving while taking narcotic pain medication Showering/Bathing: May Shower, No Tub Bathing/Swimming (no hot tubs) Other/Special Instructions: Use PolarCare ice pad to left hip often, to minimize swelling which helps to decrease pain. An AquaCell bandage will be applied prior to going home. A second AquaCell bandage will be sent home with you. Please change dressing in 1 week. This second dressing will be removed at your 2 week appointment at the orthopedic clinic. Pain Management : 1) Ibuprofen 800mg three times daily. 2) In addition to Ibuprofen, may take Tylenol for mild-moderate pain and can utilize narcotic medication for severe pain. When walking, use a walker. Take ASPIRIN 325mg daily for 3 months (this is to prevent blood clots). Call orthopedic clinic [phone] with any questions. - Discharge Plan Prescriptions/Med Rec: Aspirin 325 mg PO DAILY #90 tablet Ibuprofen [Motrin] 800 mg PO Q8H #60 tablet Home Medications: Home Meds Acetaminophen [Tylenol] 650 mg PO Q6H PRN tablet 04/16/21 [Rx] Aspirin 325 mg PO DAILY #90 tablet 04/16/21 [Rx] Docusate Sodium [Colace] 100 mg PO Q12HR PRN cap 04/16/21 [Rx] Ibuprofen [Motrin] 800 mg PO Q8H #60 tablet 04/16/21 [Rx] polyethylene glycoL 3350 [MiraLAX] 17 gm PO DAILY packet 04/16/21 [Rx] Patient Handouts: Oxycodone tablets or capsules, Ibuprofen Oral Tablets and Capsules, Aspirin, ASA oral tablets, Total Hip Replacement, Anterior, Care After, [id number] Referrals: Romi Diallo, RN [Registered Nurse] - 05/01/21 2:00 pm - Discharge Summary/Plan Comment DC Time >30 min.: No Discharge Summary/Plan Comment: Weightbearing as tolerated on left lower extremity with walker. Outpatient physical therapy according to the total hip arthroplasty protocol with anterolateral hip dislocation precautions. Pain management with ibuprofen, acetaminophen, and oxycodone. Enteric-coated aspirin for venous thromboembolus prophylaxis for 90 days. - Patient Data Vitals - Most Recent: Last Vital Signs Temp 96.8 F L 04/17/21 12:17 Pulse 96 04/17/21 12:17 Resp 20 04/17/21 12:17 BP 132/76 04/17/21 12:17 Pulse Ox 95 04/17/21 12:17 Weight - Most Recent: 280 lb I&O - Last 24 hours: Intake & Output 04/17/21 04/17/21 04/17/21 06:59 14:59 22:59 Intake Total 700 1850 Output Total 600 400 Balance 100 1450 Lab Results - Last 24 hrs: Laboratory Results - last 24 hr 04/17/21 Range/Units 05:25 Hgb 13.7 (13.0-17.0) g/dL Hct 40.8 (38.0-50.0) % Med Orders - Current: Current Medications Discontinued Medications Acetaminophen (Acetaminophen 325 Mg Tab) 650 mg PO Q6H PRN PRN Reason: Pain Al Hydroxide/Mg Hydroxide (Aluminum Hydroxide/Magnesium Hydroxide/Simethicone Susp 30 Ml Cup) 30 ml PO Q4H PRN PRN Reason: Indigestion Albuterol (Albuterol 0.083% 2.5 Mg/3 Ml Neb Soln) 2.5 mg NEB ONETIME PRN PRN Reason: Wheezing Aspirin (Aspirin 325 Mg Tab.Ec) 325 mg PO DAILY [facility] Last Admin: 04/17/21 09:33 Dose: 325 mg Documented by: Bisacodyl (Bisacodyl 10 Mg Supp) 10 mg RECTAL DAILY PRN PRN Reason: Constipation Bupivacaine HCl (Bupivacaine 0.5% 30 Ml Sdv) Confirm Administered Dose 60 ml .ROUTE .STK-MED ONE Stop: 04/16/21 11:26 Cefazolin Sodium (Cefazolin 1 Gm Vial) 3 gm IV ONCALL ONE Stop: 04/16/21 06:01 Last Admin: 04/16/21 18:45 Dose: Not Given Documented by: Cefazolin Sodium (Cefazolin 1 Gm Vial) Confirm Administered Dose 1 gm .ROUTE .STK-MED ONE Stop: 04/16/21 14:25 Cefazolin Sodium (Cefazolin 1 Gm Vial) Confirm Administered Dose 1 gm .ROUTE .STK-MED ONE Stop: 04/16/21 14:25 Cefazolin Sodium (Cefazolin 1 Gm Vial) Confirm Administered Dose 1 gm .ROUTE .STK-MED ONE Stop: 04/16/21 14:25 Diphenhydramine HCl (Diphenhydramine 25 Mg Cap) 25 - 50 mg PO Q6H PRN PRN Reason: Itching Docusate Sodium (Docusate Sodium 100 Mg Cap) 100 mg PO Q12HR PRN PRN Reason: Constipation Droperidol (Droperidol 5 Mg/2 Ml Sdv) 0.625 mg IVPUSH ONETIME PRN PRN Reason: Nausea/Vomiting Esmolol HCl (Esmolol 100 Mg/10 Ml Sdv) Confirm Administered Dose 100 mg .ROUTE .STK-MED ONE Stop: 04/16/21 14:22 Famotidine (Famotidine 20 Mg/2 Ml Sdv) 40 mg IVPUSH ONARRIVE [facility] Last Admin: 04/16/21 11:35 Dose: 40 mg Documented by: Famotidine (Famotidine 20 Mg/2 Ml Sdv) Confirm Administered Dose 40 mg .ROUTE .STK-MED ONE Stop: 04/16/21 11:02 Famotidine (Famotidine 20 Mg Tab) 40 mg PO DAILY [facility] Last Admin: 04/17/21 09:33 Dose: 40 mg Documented by: Fentanyl (Fentanyl 100 Mcg/2 Ml Sdv) 50 mcg IVPUSH Q5M PRN PRN Reason: Pain (mild 1-3) Fentanyl (Fentanyl 100 Mcg/2 Ml Sdv) Confirm Administered Dose 100 mcg .ROUTE .[facility]-MED ONE Stop: 04/16/21 11:47 Fentanyl (Fentanyl 100 Mcg/2 Ml Sdv) Confirm Administered Dose 100 mcg .ROUTE .K-MED [facility] Stop: 04/16/21 13:38 Hydromorphone HCl (Hydromorphone 2 Mg/Ml Syringe) 1 mg IVPUSH Q10M PRN PRN Reason: Pain (moderate 4-6) Tranexamic Acid 1,000 mg/ (Sodium Chloride) 110 mls @ 600 mls/hr IV ASDIRECTED [facility] Stop: 04/16/21 08:10 Last Admin: 04/16/21 18:46 Dose: Not Given Documented by: Ropivacaine 49.25 ml/Ketorolac Tromethamine 30 mg/Epinephrine HCl 0.5 mg/Clonidine HCl 80 mcg/ Sodium Chloride 75 mls @ 50 mls/sec INJECT ASDIRECTED [facility] Lactated Ringer's (Ringers, Lactated) 1,000 mls @ 100 mls/hr IV ASDIRECTED [facility] Last Admin: 04/16/21 11:35 Dose: 100 mls/hr Documented by: Propofol (Diprivan 100 Ml) Confirm Administered Dose 100 mls @ as directed .ROUTE .[facility] ONE Stop: 04/16/21 13:38 Acetaminophen (Ofirmev 1000 Mg/100 Ml) Confirm Administered Dose 100 mls @ as directed .ROUTE .[facility] Stop: 04/16/21 17:17 Cefazolin Sodium/Dextrose 2 gm (/ Premix) 50 mls @ 100 mls/hr IV Q8H [facility] Stop: 04/17/21 07:29 Last Admin: 04/17/21 06:44 Dose: 100 mls/hr Documented by: Ibuprofen (Ibuprofen 800 Mg Tab) 800 mg PO Q8H [facility] Last Admin: 04/17/21 10:57 Dose: 800 mg Documented by: Ketorolac Tromethamine (Ketorolac 30 Mg/Ml Sdv) 30 mg IVPUSH Q6H [facility] Stop: 04/17/21 05:00 Last Admin: 04/16/21 23:21 Dose: 30 mg Documented by: Lidocaine (Lidocaine 2% 5 Ml Sdv) Confirm Administered Dose 5 ml .ROUTE .STK-MED ONE Stop: 04/16/21 13:40 Lidocaine (Lidocaine 2% 5 Ml Sdv) Confirm Administered Dose 5 ml .ROUTE .STK-MED ONE Stop: 04/16/21 14:34 Lidocaine HCl (Lidocaine 2% 100 Mg/5 Ml Syringe) Confirm Administered Dose 100 mg .ROUTE .STK-MED ONE Stop: 04/16/21 14:35 Metoclopramide HCl (Metoclopramide 10 Mg/2 Ml Sdv) 10 mg IVPUSH ONETIME PRN PRN Reason: Nausea/Vomiting Metoclopramide HCl (Metoclopramide 10 Mg/2 Ml Sdv) Confirm Administered Dose 10 mg .ROUTE .STK-MED ONE Stop: 04/16/21 13:52 Metoprolol Tartrate (Metoprolol Tartrate 5 Mg/5 Ml Sdv) Confirm Administered Dose 5 mg .ROUTE .[facility] ONE Stop: 04/16/21 14:22 Morphine Sulfate (Morphine 2 Mg/Ml Syringe) 2 mg IVPUSH Q10M PRN PRN Reason: Pain (severe 7-10) Morphine Sulfate (Morphine 2 Mg/Ml Syringe) 1 - 2 mg IVPUSH Q3H PRN PRN Reason: Pain Naloxone HCl (Naloxone 0.4 Mg/Ml Syringe) 0.1 mg IVPUSH ASDIRECTED PRN PRN Reason: Respiratory Depression Ondansetron HCl (Ondansetron 4 Mg/2 Ml Sdv) 4 mg IVPUSH ONETIME PRN PRN Reason: Nausea/Vomiting Ondansetron HCl (Ondansetron 4 Mg/2 Ml Sdv) Confirm Administered Dose 4 mg .ROUTE .[facility] ONE Stop: 04/16/21 14:22 Ondansetron HCl (Ondansetron 4 Mg/2 Ml Sdv) Confirm Administered Dose 4 mg .RO MICKIE .STK-MED ONE Stop: 04/16/21 14:22 Ondansetron HCl (Ondansetron 4 Mg/2 Ml Sdv) 4 mg IVPUSH Q6H PRN PRN Reason: Nausea/Vomiting Oxycodone HCl (Oxycodone 5 Mg Tab) 5 - 10 mg PO Q4H PRN PRN Reason: Pain Last Admin: 04/17/21 09:34 Dose: 5 mg Documented by: Polyethylene Glycol (Polyethylene Glycol 3350 Powder 17 Gm Packet) 17 gm PO DAILY [facility] Last Admin: 04/17/21 09:34 Dose: 17 gm Documented by: Rocuronium [place] (Rocuronium [place] 50 Mg/5 Ml Syringe) Confirm Administered Dose 50 mg .ROUTE .STK-MED ONE Stop: 04/16/21 14:22 Rocuronium [place] (Rocuronium [place] 50 Mg/5 Ml Syringe) Confirm Administered Dose 50 mg .ROUTE .STK-MED ONE Stop: 04/16/21 14:22 Scopolamine (Scopolamine 1.5 Mg [facility]mal Patch) [facility] Last Admin: 04/16/21 11:44 Dose: 1.5 mg Documented by: Scopolamine (Scopolamine 1.5 Mg Transdermal Patch) Confirm Administered Dose 1.5 mg .ROUTE .[facility]-MED ONE Stop: 04/16/21 11:19 Last Admin: 04/16/21 18:46 Dose: Not Given Documented by: Sodium Chloride (Sodium Chloride 0.9% 10 Ml Syringe) 10 ml FLUSH ASDIRECTED PRN PRN Reason: Keep Vein Open Sodium Chloride (Sodium Chloride 0.9% 2.5 Ml Syringe) 2.5 ml FLUSH ASDIRECTED PRN PRN Reason: Keep Vein Open Sugammadex Sodium (Sugammadex Sodium 200 Mg/2 Ml Vial) Confirm Administered Dose 200 mg .ROUTE .STK-MED ONE Stop: 04/16/21 14:22 Tramadol HCl (Tramadol 50 Mg Tab) 50 - 100 mg PO Q6H PRN PRN Reason: Pain Last Admin: 04/17/21 06:46 Dose: 100 mg Documented by: Tranexamic Acid (Tranexamic Acid 1,000 Mg/10 Ml Amp) Confirm Administered Dose 1,000 mg .ROUTE .STK-MED ONE Stop: 04/16/21 13:49 Tranexamic Acid (Tranexamic Acid 1,000 Mg/10 Ml Amp) Confirm Administered Dose 1,000 mg .ROUTE .STK-MED ONE Stop: 04/16/21 16:17
--- NOTE | 2021-04-18 12:47 | CR ---
INDICATION: Post left total hip arthroplasty. TECHNIQUE: Supine AP view of the left hip, 2 images. COMPARISON: : 06/13/2020. FINDINGS: Postop change of left total hip arthroplasty. Prosthetic components well-seated and aligned. No evidence of osteolysis. IMPRESSION: : Post left total hip arthroplasty without evidence of complication. Dictated by Ryder Kenney MD @ 04/18/2021 12:46:[address] Ryder Kenney @ Apr 18 2021 12:46PM
== END 2021-04-17 14:05 | disposition home or self-care (01) | DRG 470 ==
LOC: MW.MS 10:49
PROVIDERS: ADMIT Orthopaedic Surgery; ATTEND Orthopaedic Surgery
PROC: 0SRD06Z Replacement of Left Knee Joint with Oxidized Zirconium on Polyethylene Synthetic Substitute, Open Approach (ICD-10-PCS; principal; 2021-04-16)
DX: M17.12 Unilateral primary osteoarthritis, left knee (principal); E66.9 Obesity, unspecified; M54.9 Dorsalgia, unspecified; K21.9 Gastro-esophageal reflux disease without esophagitis; M10.9 Gout, unspecified; R63.4 Abnormal weight loss; F17.200 Nicotine dependence, unspecified, uncomplicated
CPT/HCPCS: 36415; 73501-26-LT; 73501-LT; 85014; 85018; 86850; 86900; 86901; 97116-GP; 97161-GP; A9270-GY; J0131; J0171; J0690; J0735; J1885; J2405; J2704; J2765; J2795; J3010; J3490; J7120

== ENCOUNTER 2022-09-03 18:29 | Emergency (ER) | payer BC, MEDICAID ==
[2022-09-03] MEDS ORDERED: Morphine 4 MG/ML Syringe IVPUSH STA (19:36)
[2022-09-03] MEDS ORDERED: Lactated Ringers 1,000 ML IV STA (19:36)
[2022-09-03 20:51] LABS: CARBON DIOXIDE,CO2 23.1 mmol/L (21.0-32.0); POTASSIUM,K 4.2 mmol/L (3.5-5.1)
[2022-09-03 22:40] VITALS: BP 123/80; PULSE 91
== END 2022-09-03 22:36 | disposition home or self-care (01) ==
LOC: MW.ED 18:29
DX: M25.552 Pain in left hip (principal); Z20.822 Contact with and (suspected) exposure to COVID-19
CPT/HCPCS: 36415; 73502; 80053; 83605; 85025; 85610; 85652; 86140; 87040; 87635; 96361; 96374; 99283; J2270; J7120; U0002

== ENCOUNTER 2024-05-02 02:01 | Emergency (ER) | payer MEDICARE, MEDICAID, OTHER ==
[2024-05-02 02:59] LABS: PH,VENOUS 7.4 (7.31-7.41)
[2024-05-02 03:00] LABS: BASOPHILS ABSOLUTE AUTO 0.04 K/uL (0.00-0.20); BASOPHILS PERCENT AUTO 0.6 % (0.0-1.0); EOSINOPHILS ABSOLUTE AUTO 0.05 K/uL (0.00-0.45); EOSINOPHILS PERCENT AUTO 0.7 % (0.0-6.0); HEMATOCRIT 39.9 % (42.0-52.0); HEMOGLOBIN 13.6 g/dL (14.0-18.0); IMMATURE GRAN ABSOLUTE AUTO 0.02 K/uL (0.00-0.05); IMMATURE GRAN PERCENT AUTO 0.3 % (0.0-0.4); LYMPHOCYTES ABSOLUTE AUTO 1.82 K/uL (1.00-4.80); MEAN CORPUSCULAR HEMOGLOBIN 28.3 pg (28.0-32.0); MEAN CORPUSCULAR HGB CONC 34.1 g/dL (32.0-36.0); MONOCYTES ABSOLUTE AUTO 0.58 K/uL (0.00-0.80); MONOCYTES PERCENT AUTO 8.6 % (0.0-8.0); NEUTROPHILS ABSOLUTE AUTO 4.24 K/uL (1.80-7.70); NEUTROPHILS PERCENT AUTO 62.8 % (41.0-71.0); PLATELET COUNT,PLT 230 K/uL (150-400); RED BLOOD CELL COUNT 4.81 M/uL (4.52-5.90); WHITE BLOOD CELL COUNT,WBC 6.75 K/uL (3.9-11.3)
[2024-05-02] MEDS: Lactated Ringers 1,000 ML IV STA (03:01)
[2024-05-02] MEDS: Sodium Chloride 0.9% 2.5 ML Syringe FLUSH PRN ×2 (03:02→03:03)
[2024-05-02] MEDS: Sodium Chloride 0.9% 10 ML Syringe FLUSH PRN ×2 (03:03)
[2024-05-02 03:12] LABS: HEMOGLOBIN A1C 12.2 %
[2024-05-02 03:29] LABS: A/G RATIO 0.9 (0.9-1.6); ALBUMIN 3.3 g/dL (3.4-5.0); BILIRUBIN TOTAL 0.5 mg/dL (0.2-1.0); CALCIUM 8.7 mg/dL (8.5-10.1); CARBON DIOXIDE,CO2 26.2 mmol/L (21.0-32.0); CREATININE 1.1 mg/dL (0.8-1.3); EST CRCL DRUG DOSING (CG) 83.28 mL/min; MAGNESIUM 1.4 mg/dL (1.8-2.4); POTASSIUM,K 3.8 mmol/L (3.5-5.1); PROTEIN TOTAL,TP 6.9 g/dL (6.4-8.2)
[2024-05-02] MEDS: Iopamidol 755 MG/ML 500 ML Multipack Bottle IVPUSH STA (04:25)
[2024-05-02] MEDS: cefTRIAXone 2 GM in Sodium Chloride 0.9% 50 ML IV ONE (04:48)
[2024-05-02] MEDS: Morphine 2 MG/ML SYRINGE IVPUSH ONE (04:48)
[2024-05-02] MEDS: Ondansetron 4 MG/2 ML SDV IVPUSH ONE (04:48)
[2024-05-02 05:46] VITALS: BP 126/74; PULSE 78
== END 2024-05-02 05:43 | disposition home or self-care (01) ==
LOC: MW.ED 02:01
DX: L03.116 Cellulitis of left lower limb (principal); E11.9 Type 2 diabetes mellitus without complications; R55 Syncope and collapse; E66.9 Obesity, unspecified; Z68.34 Body mass index [BMI] 34.0-34.9, adult; Z79.2 Long term (current) use of antibiotics; Z79.899 Other long term (current) drug therapy
CPT/HCPCS: 36415; 70450; 71275; 73630; 80053; 82009; 82803; 83036; 83690; 83735; 84484; 85025; 85379; 93005; 96361; 96365; 96375; 99284; J0696; J2270; J2405; J3490; J7120; Q9967; 93010

== ENCOUNTER → 2024-12-11 | Day surgery (SDC) | payer MEDICARE, MEDICAID ==
[~2024-12-11] MED LIST changes: -Albuterol 0.083% 2.5 MG/3 ML Neb Soln NEB PRN; -Famotidine 20 MG/2 ML SDV IVPUSH SCH; -HYDROmorphone 2 MG/ML Syringe IVPUSH PRN; -Lactated Ringers 1,000 ML IV SCH; -Metoclopramide 10 MG/2 ML SDV IVPUSH PRN; -Morphine 2 MG/ML SYRINGE IVPUSH PRN; -Naloxone 0.4 MG/ML Syringe IVPUSH PRN; -Ondansetron 4 MG/2 ML SDV IVPUSH PRN; -Ropivacaine 49.25 ML, Ketorolac 30 MG, EPINEPHrine 0.5 MG, cloNIDine 80 MCG in Sodium C... INJECT SCH; -Scopolamine 1.5 MG Transdermal Patch TRDERM SCH; -Tranexamic Acid 1,000 MG in Sodium Chloride 0.9% 100 ML IV ONE; -ceFAZolin 1 GM Vial IV ONE; -fentaNYL 100 MCG/2 ML SDV IVPUSH PRN; +propofoL 500 MG/50 ML 0 ML ONE
[2024-12-11 07:10] VITALS: BP 134/94; PULSE 86
[2024-12-11] MEDS: Lactated Ringers 1,000 ML IV SCH (07:11)
== END ==
LOC: MW.SDS 06:36
PROVIDERS: ATTEND Surgery
DX: Z53.8 Procedure and treatment not carried out for other reasons (principal); E78.00 Pure hypercholesterolemia, unspecified; E11.9 Type 2 diabetes mellitus without complications; E66.9 Obesity, unspecified; Z68.30 Body mass index [BMI] 30.0-30.9, adult; Z79.4 Long term (current) use of insulin; Z79.899 Other long term (current) drug therapy
CPT/HCPCS: 82947; J7120; J2704

== ENCOUNTER 2025-01-01 07:39 | Emergency (ER) | payer MEDICARE, MEDICAID ==
[2025-01-01 08:04] VITALS: BP 143/96; PULSE 75
[2025-01-01] MEDS: Ketorolac 60 MG/2 ML SDV IM ONE (08:44)
[2025-01-01 08:52] LABS: BASOPHILS ABSOLUTE AUTO 0.04 K/uL (0.00-0.20); BASOPHILS PERCENT AUTO 0.6 % (0.0-1.0); EOSINOPHILS ABSOLUTE AUTO 0.13 K/uL (0.00-0.45); HEMATOCRIT 45.4 % (42.0-52.0); HEMOGLOBIN 15.1 g/dL (14.0-18.0); IMMATURE GRAN ABSOLUTE AUTO 0.02 K/uL (0.00-0.05); IMMATURE GRAN PERCENT AUTO 0.3 % (0.0-0.4); LYMPHOCYTES ABSOLUTE AUTO 1.57 K/uL (1.00-4.80); LYMPHOCYTES PERCENT AUTO 24.5 % (24.0-44.0); MEAN CORPUSCULAR HEMOGLOBIN 28.9 pg (28.0-32.0); MEAN CORPUSCULAR HGB CONC 33.3 g/dL (32.0-36.0); MEAN CORPUSCULAR VOLUME 86.8 fL (83.0-99.0); MONOCYTES ABSOLUTE AUTO 0.63 K/uL (0.00-0.80); MONOCYTES PERCENT AUTO 9.8 % (0.0-8.0); NEUTROPHILS ABSOLUTE AUTO 4.01 K/uL (1.80-7.70); NEUTROPHILS PERCENT AUTO 62.8 % (41.0-71.0); PLATELET COUNT,PLT 209 K/uL (150-400); RED BLOOD CELL COUNT 5.23 M/uL (4.52-5.90)
[2025-01-01 09:39] LABS: A/G RATIO 0.9 (0.9-1.6); ALBUMIN 3.5 g/dL (3.4-5.0); BILIRUBIN TOTAL 0.6 mg/dL (0.2-1.0); C-REACTIVE PROTEIN 1.65 mg/dL (<0.3); CALCIUM 9.3 mg/dL (8.5-10.1); EST CRCL DRUG DOSING (CG) 90.53 mL/min; POTASSIUM,K 4.5 mmol/L (3.5-5.1); PROTEIN TOTAL,TP 7.2 g/dL (6.4-8.2); URIC ACID 4.2 mg/dL (2.6-7.2)
[2025-01-01] MEDS: predniSONE 20 MG Tab PO ONE (09:48)
== END 2025-01-01 10:04 | disposition home or self-care (01) ==
LOC: MW.ED 07:39
DX: M25.511 Pain in right shoulder (principal); E78.00 Pure hypercholesterolemia, unspecified; E11.9 Type 2 diabetes mellitus without complications; Z75.8 Other problems related to medical facilities and other health care; Z79.4 Long term (current) use of insulin; Z79.899 Other long term (current) drug therapy
CPT/HCPCS: 36415; 80053; 84550; 85025; 85652; 86140; 99283; A9270; 99284

== ENCOUNTER 2025-01-23 15:57 | Emergency (ER) | payer MEDICARE, MEDICAID ==
[2025-01-23 16:17] VITALS: BP 152/87; PULSE 88
[2025-01-23] MEDS: oxyCODONE 5 MG/5 ML Cup PO ONE (16:54)
[2025-01-23] MEDS: Triamcinolone Acetonide 40 MG/ML 1 ML SDV IM ONE (16:55)
[2025-01-23] MEDS: oxyCODONE 5 MG Tab PO STA (16:58)
== END 2025-01-23 17:15 | disposition home or self-care (01) ==
LOC: MW.ED 15:57
DX: M25.531 Pain in right wrist (principal); F17.210 Nicotine dependence, cigarettes, uncomplicated; E78.00 Pure hypercholesterolemia, unspecified; E10.9 Type 1 diabetes mellitus without complications; E66.9 Obesity, unspecified; Z68.37 Body mass index [BMI] 37.0-37.9, adult; Z90.49 Acquired absence of other specified parts of digestive tract; Z79.899 Other long term (current) drug therapy; Z79.4 Long term (current) use of insulin
CPT/HCPCS: 96372; 99283; A9270; J3301; 99284

== ENCOUNTER 2025-07-03 05:47 | Emergency (ER) | payer MEDICARE, MEDICAID ==
[2025-07-03] MEDS: Ketorolac 30 MG/ML SDV IM ONE (06:20)
[2025-07-03 06:40] LABS: BASOPHILS ABSOLUTE AUTO 0.04 K/uL (0.00-0.20); BASOPHILS PERCENT AUTO 0.6 % (0.0-1.0); EOSINOPHILS ABSOLUTE AUTO 0.09 K/uL (0.00-0.45); EOSINOPHILS PERCENT AUTO 1.4 % (0.0-6.0); IMMATURE GRAN ABSOLUTE AUTO 0.01 K/uL (0.00-0.05); IMMATURE GRAN PERCENT AUTO 0.2 % (0.0-0.4); LYMPHOCYTES ABSOLUTE AUTO 1.98 K/uL (1.00-4.80); LYMPHOCYTES PERCENT AUTO 30.4 % (24.0-44.0); MEAN PLATELET VOLUME 9.4 fL (9.4-12.4); MONOCYTES ABSOLUTE AUTO 0.50 K/uL (0.00-0.80); MONOCYTES PERCENT AUTO 7.7 % (0.0-8.0); NEUTROPHILS ABSOLUTE AUTO 3.89 K/uL (1.80-7.70); NEUTROPHILS PERCENT AUTO 59.7 % (41.0-71.0); NRBC ABSOLUTE 0.00 K/uL (0.00-0.02); NRBC PERCENT 0.0 /100WBC (0.0-0.2); PLATELET COUNT,PLT 228 K/uL (150-400); RED BLOOD CELL COUNT 5.05 M/uL (4.52-5.90); WHITE BLOOD CELL COUNT,WBC 6.51 K/uL (3.9-11.3)
[2025-07-03 07:02] LABS: A/G RATIO 1.0 (0.9-1.6); ALANINE AMINOTRANSFERASE,ALT 21.0 IU/L (14-63); ASPARTATE AMNIOTRANSFERASE,AST 16.0 IU/L (15-37); BILIRUBIN TOTAL 0.7 mg/dL (0.2-1.0); BLOOD UREA NITROGEN,BUN 8.0 mg/dL (7.0-18.0); CARBON DIOXIDE,CO2 26.9 mmol/L (21.0-32.0); CHLORIDE,CL 101.0 mmol/L (98-107); CREATININE 1.4 mg/dL (0.8-1.3); EST CRCL DRUG DOSING (CG) 62.0 mL/min; GLUCOSE RANDOM 142.0 mg/dL (74-106); POTASSIUM,K 3.4 mmol/L (3.5-5.1); PROTEIN TOTAL,TP 7.0 g/dL (6.4-8.2); SODIUM,NA 137.0 mmol/L (136-148)
[2025-07-03 07:03] LABS: ESTIMATED GFR 59.0 mL/min (>60)
[2025-07-03] MEDS: Bacitracin Oint 1 GM U/D Packet TOP ONE (07:26)
[2025-07-03 07:32] VITALS: BP 115/79; PULSE 67
== END 2025-07-03 07:32 | disposition home or self-care (01) ==
LOC: MW.ED 05:47
DX: M19.072 Primary osteoarthritis, left ankle and foot (principal); L02.413 Cutaneous abscess of right upper limb; R79.89 Other specified abnormal findings of blood chemistry; E10.9 Type 1 diabetes mellitus without complications; E66.9 Obesity, unspecified; Z79.4 Long term (current) use of insulin; Z79.899 Other long term (current) drug therapy
CPT/HCPCS: 10060; 36415; 73630; 80053; 85025; 85652; 86140; 96372; 99283; J1885; J8540

== ENCOUNTER 2025-07-29 05:03 | Emergency (ER) | payer MEDICAID, MEDICARE ==
[2025-07-29] MEDS: Ketorolac 30 MG/ML SDV IM ONE (05:19)
[2025-07-29 05:22] VITALS: BP 147/86; PULSE 86
== END 2025-07-29 05:53 | disposition home or self-care (01) ==
LOC: MW.ED 05:03
DX: M10.071 Idiopathic gout, right ankle and foot (principal); E78.00 Pure hypercholesterolemia, unspecified; E10.9 Type 1 diabetes mellitus without complications; E66.9 Obesity, unspecified; Z79.4 Long term (current) use of insulin; Z79.899 Other long term (current) drug therapy; Z96.651 Presence of right artificial knee joint; Z90.49 Acquired absence of other specified parts of digestive tract
CPT/HCPCS: 96372; 99283; A9270; J1885; J8540; 99284